=== PATIENT | female | born 1960 | race Two or more races ===

== ENCOUNTER → 2017-05-29 | Outpatient (REF) | payer MEDICARE, MEDICAID ==
[2017-05-30 12:30] LABS: THYROID PEROXIDASE ANTIBODY < 28.0 U/ML (<60.0)
[2017-05-30 12:31] LABS: TOTAL T3 87.6 NG/DL (60.0-181.0)
[2017-05-30 12:34] LABS: THYROXINE (T4) 8.1 UG/DL (4.5-12.0)
[2017-05-30 12:34] LABS: THYROID STIMULATING HORMONE 0.274 uIU/ML (0.358-3.740)
== END ==
LOC: M SFHCCLAY 14:57
DX: R94.6 Abnormal results of thyroid function studies (principal)
CPT/HCPCS: 84443

== ENCOUNTER → 2017-09-04 | Outpatient (REF) | payer MEDICARE, MEDICAID ==
[2017-09-04 17:18] LABS: THYROXINE (T4) 9.5 UG/DL (4.5-12.0)
[2017-09-04 17:18] LABS: THYROID STIMULATING HORMONE 0.314 uIU/ML (0.358-3.740)
== END ==
LOC: M SFHCCLAY 11:02
DX: R94.6 Abnormal results of thyroid function studies (principal)
CPT/HCPCS: 84443

== ENCOUNTER → 2018-03-12 | Outpatient (REF) | payer MEDICARE, MEDICAID ==
[2018-03-12 19:34] LABS: ALBUMIN 3.5 GM/DL (3.2-5.2); ALT/SGPT 23 U/L (12-78); BILIRUBIN,TOTAL 0.3 MG/DL (0.2-1.0); BLOOD UREA NITROGEN 13 MG/DL (7-18); CALCIUM LEVEL 8.2 MG/DL (8.5-10.1); CARBON DIOXIDE LEVEL 22 MEQ/L (21-32); CHLORIDE LEVEL 110 MEQ/L (98-107); CHOLESTEROL LEVEL 237 MG/DL (<200); CREATININE FOR GFR 0.66 MG/DL (0.55-1.30); GLOMERULAR FILTRATION RATE > 60.0 (>51); GLUCOSE, FASTING 111 MG/DL (70-100); HDL CHOLESTEROL 60 MG/DL (>40); LDL CHOLESTEROL 149 MG/DL (<100); NON-HDL-C 177 MG/DL; POTASSIUM SERUM 4.1 MEQ/L (3.5-5.1); SODIUM LEVEL 141 MEQ/L (136-145); THYROID STIMULATING HORMONE 0.556 uIU/ML (0.358-3.740); TOTAL PROTEIN 7.1 GM/DL (6.4-8.2); TRIGLYCERIDES LEVEL 142 MG/DL (<150)
== END ==
LOC: M SFHCCLAY 09:42
PROVIDERS: ATTEND Family Medicine
DX: R94.6 Abnormal results of thyroid function studies (principal); E78.2 Mixed hyperlipidemia
CPT/HCPCS: 80053; 80061; 84443; G0463

== ENCOUNTER → 2020-03-07 | Outpatient (CLI) | payer MEDICARE, MEDICAID ==
--- NOTE | 2020-03-07 14:12 | REP ---
INDICATION: R05, COUGH COMPARISON: 06/10/2006 TECHNIQUE: PA and lateral. FINDINGS: The mediastinum and cardiac silhouette are normal. The lung ruggiero are clear and without acute consolidation, effusion, or pneumothorax. Skeletal structures demonstrate osteopenia and lateral view demonstrates mild compression deformities at T9 and T10 which represent a change from 2006 and warrant correlation. IMPRESSION: 1. No acute cardiopulmonary process. 2. Thoracic compression deformities of uncertain chronicity warrant correlation. <Electronically signed by Napoleon Pandey > 03/07/20 [id number]
== END ==
LOC: M CLY 13:44
PROVIDERS: ATTEND Family Medicine
DX: M85.88 Other specified disorders of bone density and structure, other site (principal); R05 Cough
CPT/HCPCS: 71046; G0463

== ENCOUNTER → 2020-04-06 | Outpatient (CLI) | payer MEDICARE, MEDICAID ==
--- NOTE | 2020-04-07 00:13 | ECWPNPC ---
PATIENT NAME: APRIL COHEN : 1960 GENDER: FEMALE VISIT DATE: 04/06/2020 DISCHARGE DATE: 04/06/20 1101 VISIT LOCKED DATE TIME: PHYSICIAN: COLTON JIMENEZ PHYSICIAN PAGER NO: ACTIVE RESOURCE: COLTON JIMENEZ REASON FOR APPOINTMENT 1. LOW BACK HISTORY OF PRESENT ILLNESS DEPRESSION SCREENING: PHQ-2 (2015 EDITION) LITTLE INTEREST OR PLEASURE IN DOING THINGS?NOT AT ALL FEELING DOWN, DEPRESSED, OR HOPELESS?NOT AT ALL TOTAL SCORE0 GENERAL: APRIL IS A 59-YEAR-OLD FEMALE REFERRED TO US BY PRIMARY CARE TO EVALUATE FOR PERSISTENT LOW BACK PAIN AND GENERALIZED JOINT PAIN WITH A HISTORY OF RHEUMATOID ARTHROPATHY. REPORTS THAT CURRENT PAIN MEDICATION HYDROCODONE 7.5/325 AND TYLENOL NO. 4 ARE INEFFECTIVE. STATES SHE'S TRIED LOTS OF MEDICATIONS OVER THE YEARS FOR CHRONIC PAIN WITHOUT IMPROVEMENT. STATES SHE HAD INJECTION THERAPY MANY YEARS AGO FOR BACK PAIN AND THAT DIDN'T HELP. ON MEDICATION FOR RHEUMATOID ARTHRITIS BUT HAD STOPPED THIS RECENTLY DUE TO INFECTION. HAS TRIALED MULTIPLE ANTI-RHEUMATOID MEDICATIONS WITHOUT IMPROVEMENT IN HER PAIN. FOLLOWS WITH RHEUMATOLOGY. DISCUSSED MEDICATION OPTIONS. PATIENT WOULD LIKE TO AVOID MEDICATIONS BECAUSE SHE HAS TRIED THEM IN THE PAST AND THEY HAVE BEEN INEFFECTIVE. ALSO REPORTING SEVERE DIFFICULTY WITH SLEEP. SHE IS NOT INTERESTED IN DOING INJECTION THERAPY. -. FALL RISK SCREENING: SCREENING :NO FALLS REPORTED IN THE LAST YEAR PAIN SCREENING: PATIENT HAS A COMPLAINT OF ACUTE OR CHRONIC PAIN :YES LOCATION OF PAIN:MID BACK, LOW BACK INTENSITY OF PAIN (SCALE OF 1 TO 10):10 WHAT DOES YOUR PAIN FEEL LIKE:BURNING, STABBING DURATION:CONTINOUS, CONSTANT, AWAKENS FROM SLEEP PAIN IS INCREASED BY:ACTIVITIES, PROLONGED STANDING PAIN IS DECREASED BY:USE OF PAIN MEDICATIONS, SITTING TREATMENT/MEDICATIONS USED TO MANAGE PAIN:OTC PAIN RELIEVERS, NSAIDS, TOPICAL CORTICOSTEROIDS, PHYSICAL THERAPY HAS TRIED INJECTIONS AND TENS UNIT IN THE PAST IN CERVICAL AND LUMBAR REGION. PATIENTS STATE INJECTIONS DID NOT HELP WITH THE PAIN. LEVEL OF RELIEF FROM PAIN TREATMENTS IN THE PAST:0% NURSING NOTE: -. PAIN CENTER INTAKE QUESTIONS: DO YOU HAVE A HISTORY OF MRSA? :NO DO YOU TAKE A BLOOD THINNERS? :NO DO YOU HAVE ANY BLEEDING DISORDERS? :NO ANY NEW NUMBNESS OR WEAKNESS IN YOUR LEGS OR ARMS? :NO ANY PACEMAKER,DEFIBRILLATOR, OR DORSAL COLUMN STIMULATOR? :NO DO YOU HAVE ANY RASHES OR OPEN SORES? :YES PATIENT HAS PSORIASIS ARE YOU ALLERGIC TO IV DYE? :YES ARE YOU DIABETIC? :NO ANY NEW PROBLEMS WITH YOUR MEDICATIONS? :NO HAVE YOU RECEIVED A VACCINE IN THE PAST 30 DAYS? :NO DO YOU PLAN TO RECEIVE A VACCINE IN THE NEXT 21 DAYS? :NO DO YOU NEED ANY PRESCRIPTION? :NO DO YOU TAKE ANY IMMUNOSUPPRESSIVE MEDICATIONS? :NO IS THERE A CHANCE YOU COULD BE ? :NO ARE YOU BREAST FEEDING? :NO CURRENT MEDICATIONS TAKING PROAIR HFA 108 (90 BASE) MCG/ACT AEROSOL SOLUTION 2 PUFFS NEEDED INHALATION QID PRN TAKING PROLIA 60 MG/ML SOLUTION SUBCUTANEOUS EVERY 6 NONTHS TAKING LUMIGAN 0.01 % SOLUTION 1 DROP INTO AFFECTED EYE IN THE EVENING OPHTHALMIC ONCE A DAY TAKING TIMOLOL MALEATE 0.5 % SOLUTION 1 DROP INTO AFFECTED EYE OPHTHALMIC ONCE A DAY TAKING METOPROLOL SUCCINATE ER 50 MG TABLET EXTENDED RELEASE 24 HOUR 1 TABLET ORALLY ONCE A DAY TAKING SPIRIVA HANDIHALER 18 MCG CAPSULE 1 CAPSULE INHALATION ONCE A DAY TAKING TOPIRAMATE 100 MG TABLET 1 TABLET ORALLY TWICE DAILY TAKING XELJANZ 5 MG TABLET 1 TABLET ORALLY TWICE A DAY TAKING FLUTICASONE PROPIONATE 50 MCG/ACT SUSPENSION 1 SPRAY IN EACH NOSTRIL NASALLY ONCE A DAY TAKING SYMBICORT 160-4.5 MCG/ACT AEROSOL 2 PUFFS INHALATION TWICE A DAY TAKING OMEPRAZOLE 40 MG CAPSULE DELAYED RELEASE 1 CAPSULE ORALLY ONCE A DAY TAKING ALBUTEROL SULFATE (2.5 MG/3ML) 0.083% NEBULIZATION SOLUTION 3 ML NEEDED INHALATION EVERY 6 HRS TAKING CYCLOBENZAPRINE HCL 10 MG TABLET 1 TABLET NEEDED ORALLY TWICE DAILY TAKING CETIRIZINE HCL 10 MG TABLET 1 TABLET ORALLY ONCE A DAY TAKING AMLODIPINE BESYLATE 10 MG TABLET 1 TABLET ORALLY ONCE A DAY TAKING HYDROCODONE-ACETAMINOPHEN 7.5-325 MG TABLET 1 TABLET NEEDED ORALLY THREE TIMES DAILY MDD#3 NOT-TAKING DOXYCYCLINE HYCLATE 100 MG CAPSULE 1 CAPSULE ORALLY TWICE A DAY NOT-TAKING PREDNISONE 20 MG TABLET 3 TABS FOR 2 DAYS THEN 2 TABS FOR 2 DAYS THEN 1 TAB FOR 3 DAYS ORALLY ONCE A DAY NOT-TAKING PHENTERMINE HCL 37.5 MG CAPSULE 1 CAPSULE ORALLY ONCE A DAY PAST MEDICAL HISTORY RA GERD HYPERTENSION GLAUCOMA COPD OSTEOPOROSIS ALLERGIES PENICILLIN: HIVES - ALLERGY KEFLEX: HIVES - ALLERGY MOTRIN: HIVES - ALLERGY SHELLFISH: HIVES - ALLERGY CHANTIX: ITCHING - SIDE EFFECTS IV DYE: HIVES FAMILY HISTORY FATHER: 51 YRS, [place], DIAGNOSED WITH HYPERTENSION, UNSPECIFIED HEART DISEASE MOTHER: ALIVE, LUPUS, HYPERTENSION SIBLINGS: ALIVE, HYPERTENSION DAUGHTER(S): ALIVE 2 BROTHER(S) , 3 SISTER(S) . 1DAUGHTER(S) - HEALTHY. SOCIAL HISTORY GENERAL: TOBACCO USE ARE YOU A:CURRENT SMOKER HOW OFTEN DO YOU SMOKE CIGARETTES?EVERY DAY HOW SOON AFTER YOU WAKE UP DO YOU SMOKE YOUR FIRST CIGARETTE?AFTER 60 MIN HOW MANY CIGARETTES A DAY DO YOU SMOKE?6-10 ARE YOU INTERESTED IN QUITTING?NOT READY TO QUIT ADDITIONAL FINDINGS: TOBACCO USERMODERATE CIGARETTE SMOKER (10-19 CIGS/DAY) PATIENT COUNSELED ON THE DANGERS OF TOBACCO USE AND URGED TO QUIT:03/07/2020 COUNSELED THE PATIENT ON SMOKING EFFECTS, EDUCATION AVOAENGH16/29/2020 VAPORNO E-CIGARETTENO SMOKING CESSATION INFORMATION GIVEN03/07/2020 LATEX QUESTIONNAIRE LATEX ALLERGY : HAVE YOU EVER DEVELOPED ANY TYPE OF REACTION AFTER HANDLING LATEX PRODUCTS SUCH RUBBER GLOVES, CONDOMS, DIAPHRAGMS, BALLOONS, SOCKS, OR UNDERWEAR?NO LATEX ALLERGY : HAVE YOU EVER DEVELOPED ANY TYPE OF REACTION DURING OR AFTER DENTAL APPOINTMENT, VAGINAL/RECTAL EXAMINATION, SURGICAL PROCEDURE, OR ANY OTHER EXPOSURE?NO DATE ASKED : 07/14/2018 LATEX RISK : HAVE YOU EVER HAD ANY DIFFICULTY BREATHING OR HIVES AFTER EATING OR HANDLING ANY FRUITS, OR VEGETABLES; SUCH KIWI, BANANAS, STONE FRUITS, OR CHESTNUTSNO LATEX RISK : DO YOU HAVE A PREVIOUS PERSONAL HISTORY OF MORE THAN NINE SURGERIES, SPINA BIFIDA, OR REPEATED CATHERIZATIONS? NO LATEX RISK : ARE YOU FREQUENTLY EXPOSED TO LATEX PRODUCTS IN YOUR OCCUPATION?NO ALCOHOL USE: YES, OCCASIONAL. BMI CARE GOAL FOLLOW-UP ABOVE NORMAL BMI FOLLOW-UPDIETARY MANAGEMENT EDUCATION, GUIDANCE, AND COUNSELING ALCOHOL SCREENING DID YOU HAVE A DRINK CONTAINING ALCOHOL IN THE PAST YEAR?YES HOW OFTEN DID YOU HAVE SIX OR MORE DRINKS ON ONE OCCASION IN THE PAST YEAR?NEVER (0 POINTS) HOW MANY DRINKS DID YOU HAVE ON A TYPICAL DAY WHEN YOU WERE DRINKING IN THE PAST YEAR?1 OR 2 (0 POINTS) HOW OFTEN DID YOU HAVE A DRINK CONTAINING ALCOHOL IN THE PAST YEAR?FOUR OR MORE TIMES A WEEK (4 POINTS) POINTS4 INTERPRETATIONPOSITIVE RECREATIONAL DRUG USE DRUG USE?NO CAFFEINE CAFFEINE USE?YES HOW OFTEN AND HOW MUCH? 2 COFFEES DAILY SEXUAL HX HAD SEX IN THE LAST 12 MONTHS (VAGINAL, ORAL, OR ANAL)?YES WITHMEN ONLY PREVENTION STRATEGIES DISCUSSED:OTHER USE PROTECTION?NO HAVE YOU EVER HAD AN STD?NO HIV / HEP-C SCREENING HIV TEST OFFERED TO PATIENT:YES DATE OFFERED:03/12/2018 TEST ACCEPTED:NO HEP-C TEST OFFERED TO PATIENT:YES DATE OFFERED:03/12/2018 REASON:PATIENT DECLINED TEST ACCEPTED:NO REASON:PATIENT DECLINED BROCHURE PROVIDED TO PATIENTNO [employer] [id number] L[employer] LANGUAGES SPOKEN:CZECH EDUCATION LEVEL OF EDUCATION:NOT FINISHED HIGH SCHOOL LEARNING BARRIERS / SPECIAL NEEDS CHANGE FROM LAST VISIT?NO BARRIERS TO LEARNING?NO HEARING IMPAIRED?NO VISION IMPAIRED?YES :CORRECTIVE LENSES COGNITIVELY IMPAIRED?NO READINESS TO LEARN?YES LEARNING PREFERENCES?NO LEARNING CAPABILITIES PRESENT?YES EMOTIONAL BARRIERS?NO SPECIAL DEVICES?NO OUTREACH LIBRARIAN NEEDED?NO DOMESTIC VIOLENCE DO YOU FEEL SAFE IN YOUR ENVIRONMENT?YES OCCUPATION: DISABLED. DIET: REGULAR. EXERCISE: NO REGULAR EXERCISE. MARITAL STATUS: . OTHERS AT HOME: SPOUSE. QUIT 11/2016 BUT STARTED SMOKING AGAIN. REVIEW OF SYSTEMS CONSTITUTIONAL: ANY RECENT FEVER NO . CHILLS NO . WEIGHT CHANGE OF UNKNOWN REASONS NO . GASTROENTEROLOGY: NEW UNEXPLAINABLE CHANGES IN BOWEL CONTROL NO . CONSTIPATION NO . GENITOURINARY: ANY NEW CHANGE IN BLADDER CONTROL? NO . NEUROLOGY: NEW ONSET DIZZINESS OR NEUROLOGICAL CHANGES NOT MENTIONED NO . NEW NUMBNESS OR PAIN PATTERNS NOT MENTIONED AND PERTINENT TO TODAY'S VISIT NO . CARDIOLOGY: NEW CHEST PRESSURE NO . NEW CHEST PAIN NO . RESPIRATORY: UNEXPLAINABLE COUGH NO . NEW SHORTNESS OF BREATH NO . VITAL SIGNS WT 140.6 LBS, HT 5'3", BMI 24.90 INDEX, BP 137/81 MM HG, HR 99 /MIN, RR 18 /MIN, TEMP 99.7 F, OXYGEN SAT % 98%, SAFE IN ENV? (Y/N) YES, REVIEWED BY: CAITLIN PEREZ MA. EXAMINATION GENERAL EXAMINATION: GENERALAPPEARS UNCOMFORTABLE . PSYCHAPPROPRIATE MOOD AND AFFECT . NECK:NO LYMPHADENOPATHY, SUPPLE. LUNGS:CLEAR TO AUSCULTATION BILATERALLY, NO WHEEZES, RHONCHI, RALES. HEART:NO MURMURS, REGULAR RATE AND RHYTHM. MUSCULOSKELETAL: MUSCLE STRENGTH TESTING 5/5 BILATERAL UPPER AND LOWER EXTREMITIES. LUMBAR:TENDERNESS NOTED OVER L/S AXIS AND LOWER THORACIC AXIS . JOINTS:SIGNIFICANT ARTHRITIC CHANGES NOTED OVER HANDS AND FINGERS . ASSESSMENTS INFLAMMATORY ARTHROPATHY - M19.90 (PRIMARY) TREATMENT INFLAMMATORY ARTHROPATHY NOTES: PATIENT IS NOT A GOOD CANDIDATE FOR INJECTION THERAPY NOR IS SHE INTERESTED IN THIS TYPE OF THERAPY. WE DISCUSSED MEDICATION MANAGEMENT. THIS WOULD INVOLVE MONTHLY VISITS TO THE PAIN CENTER FOR MEDICATION MANAGEMENT. ALL MEDICATIONS THAT SHE'S TRIED INCLUDING NARCOTIC PAIN MEDICATIONS HAVE BEEN INEFFECTIVE. PATIENT WILL CALL IF SHE WOULD LIKE TO CONSIDER MONTHLY VISITS FOR MEDICATION MANAGEMENT. PROCEDURE CODES FA211 ESTABILISHED PATIENT [facility] CHARGE DISPOSITION & COMMUNICATION FOLLOW UP PATIENT WILL CALL IF NECESSARY (REASON: INFLAMMATORY ARTHROPATHY/MEDICATION MANAGEMENT) ELECTRONICALLY SIGNED BY HEATHER ZAMBRANO ON 04/06/2020 AT 12:58 PM EST DISCLAIMER : THIS IS A VISIT SUMMARY EXTRACTED FROM THE [employer] CHART. IT IS NOT A COPY OF THE [employer] PROGRESS NOTE. [place]
== END ==
LOC: M PAIN 10:15
PROVIDERS: ATTEND Nurse Practitioner Family
DX: M19.90 Unspecified osteoarthritis, unspecified site (principal); M54.5 Low back pain; M06.9 Rheumatoid arthritis, unspecified; K21.9 Gastro-esophageal reflux disease without esophagitis; I10 Essential (primary) hypertension; H40.9 Unspecified glaucoma; J44.9 Chronic obstructive pulmonary disease, unspecified; M81.0 Age-related osteoporosis without current pathological fracture; Z79.891 Long term (current) use of opiate analgesic; Z79.899 Other long term (current) drug therapy; F17.210 Nicotine dependence, cigarettes, uncomplicated; Z88.0 Allergy status to penicillin; Z88.1 Allergy status to other antibiotic agents; Z88.6 Allergy status to analgesic agent; Z88.8 Allergy status to other drugs, medicaments and biological substances; Z91.013 Allergy to seafood; Z91.041 Radiographic dye allergy status

== ENCOUNTER → 2024-04-09 | Outpatient (REF) | payer MEDICARE, MEDICAID ==
[2024-04-09 18:09] LABS: ALBUMIN 3.6 G/DL (3.2-5.2); ALKALINE PHOSPHATASE 72 U/L (35-104); ALT/SGPT 21 U/L (7.0-40); AST/SGOT 14 U/L (<34); BILIRUBIN,TOTAL 0.3 MG/DL (0.3-1.2); BLOOD UREA NITROGEN 15 MG/DL (9-23); CALCIUM LEVEL 10.1 MG/DL (8.3-10.6); CARBON DIOXIDE LEVEL 27 MMOL/L (20-31); CHLORIDE LEVEL 107 MMOL/L (98-107); CHOLESTEROL LEVEL 246 MG/DL (<200); CHOLESTEROL RISK RATIO 3.81 (<5); CREATININE FOR GFR 0.53 MG/DL (0.55-1.30); GLOMERULAR FILTRATION RATE > 60.0 (>45); GLUCOSE, FASTING 106 MG/DL (74-106); HDL CHOLESTEROL 64.5 MG/DL (>40); LDL CHOLESTEROL 155.9 MG/DL (<100); NON-HDL-C 181.5 MG/DL; POTASSIUM SERUM 4.1 MMOL/L (3.5-5.1); SODIUM LEVEL 139 MMOL/L (136-145); TOTAL PROTEIN 7.5 G/DL (5.7-8.2); TRIGLYCERIDES LEVEL 128 MG/DL (<150)
[2024-04-09 18:11] LABS: FREE T4 1.17 NG/DL (0.89-1.76)
[2024-04-09 18:31] LABS: HEMOGLOBIN A1c 5.2 % (4.0-6.0)
[2024-04-09 18:34] LABS: HEMATOCRIT 48.8 % (36.0-47.0); HEMOGLOBIN 15.6 g/dl (12.0-15.5); MEAN CORPUSCULAR VOLUME 103.2 fl (80.0-96.0); PLATELET COUNT, AUTOMATED 455 10^3/uL (150-450); RED BLOOD COUNT 4.73 10^6/uL (4.00-5.40); WHITE BLOOD COUNT 8.6 10^3/uL (4.0-10.0)
== END ==
LOC: M SFHCCLAY 11:29
PROVIDERS: ATTEND Family Medicine
DX: I10 Essential (primary) hypertension (principal); R73.01 Impaired fasting glucose; E78.2 Mixed hyperlipidemia; R94.6 Abnormal results of thyroid function studies